=== PATIENT | male | born 1930 | race Asian ===

== ENCOUNTER 2017-12-13 16:20 | Inpatient (IN) | payer MEDICARE, MEDICAID ==
[~2017-12-13] VITALS: Ht 157.5 cm; Wt 38.6 kg
--- NOTE | 2017-12-13 16:30 | NUR ---
BB PRIVATE EMS FROM [facility] FOR PSYCH EVAL; PATIENT RECEIVED AWAKE AND ALERT. APPEARS NOT IN DISTRESS. VSS
[2017-12-13] MEDS ORDERED: ZOLP10TA2 GT ×2 (16:53→21:01)
[2017-12-13] MEDS ORDERED: ASCO500T9 GT (16:53)
[2017-12-13] MEDS ORDERED: SENN-18 GT (16:53)
[2017-12-13] MEDS ORDERED: TAMS-12 GT (16:53)
[2017-12-13] MEDS ORDERED: DIAZ2TAB3 GT (16:53)
[2017-12-13] MEDS ORDERED: NUT.237L67 GT (16:53)
[2017-12-13] MEDS ORDERED: ACET-868 GT (16:53)
[2017-12-13] MEDS ORDERED: PANC1CAP GT (16:53)
[2017-12-13] MEDS ORDERED: FEBU40TA GT (16:53)
[2017-12-13] MEDS ORDERED: DIPH1TAB GT (16:53)
[2017-12-13] MEDS ORDERED: ENOX30DI SQ (16:53)
[2017-12-13] MEDS ORDERED: PANT40SU2 GT (16:53)
[2017-12-13] MEDS ORDERED: NAPH1POW3 GT (16:53)
[2017-12-13] MEDS ORDERED: PRIM50TA GT (16:53)
[2017-12-13] MEDS ORDERED: METO5SOL GT (16:53)
[2017-12-13] MEDS ORDERED: EPOE40002 SQ (16:53)
[2017-12-13] MEDS ORDERED: ALLO100T GT (16:53)
[2017-12-13] MEDS ORDERED: FURO-145 GT (16:53)
[2017-12-13] MEDS ORDERED: FINA5TAB11 GT (16:53)
[2017-12-13] MEDS ORDERED: SODI650T GT (16:53)
[2017-12-13] MEDS ORDERED: MULT1TAB69 GT (16:53)
[2017-12-13 17:10] LABS: BASOPHILS % (AUTO) 0.2 % (0.0-2.0); EOSINOPHILS % (AUTO) 1.9 % (0.0-6.0); HEMATOCRIT 29 % (39-51); HEMOGLOBIN 9.6 g/dL (13.5-17.5); LYMPHOCYTES # (AUTO) 0.8 /CMM (0.8-4.8); LYMPHOCYTES % (AUTO) 14.1 % (20.0-44.0); MEAN CORPUSCULAR HGB CONC 34 g/dl (31.0-36.0); MEAN CORPUSCULAR VOLUME 93 fL (80-96); MONOCYTES # (AUTO) 0.6 /CMM (0.1-1.30); MONOCYTES % (AUTO) 10.4 % (2.0-12.0); NEUTROPHILS # (AUTO) 4.1 /CMM (1.8-8.9); NEUTROPHILS % (AUTO) 73.4 % (43.0-81.0); PLATELET COUNT (AUTO) 138 /CMM (150-450); RDW COEFFICIENT OF VARIATION 20.9 (11.5-15.0); RED BLOOD CELL COUNT(AUTO) 3.07 MIL/uL (4.5-6.0); WHITE BLOOD COUNT (AUTO) 5.6 K/uL (4.3-11.0)
--- NOTE | 2017-12-13 17:31 | NUR ---
URINE SAMPLE COLLECTED AND SENT TO LAB
[2017-12-13 17:33] LABS: ALANINE AMINOTRANSFERASE 24 U/L (12-78); ALBUMIN 3.2 g/dL (3.4-5.0); ALCOHOL, BLOOD < 3 mg/dL (0-0); ALKALINE PHOSPHATASE 80 U/L (46-116); ASPARTATE AMINOTRANSFERASE 25 U/L (15-37); BILIRUBIN,DIRECT 0.2 mg/dL (0.0-0.2); BILIRUBIN,TOTAL 0.5 mg/dL (0.2-1.0); CALCIUM, SERUM 11.5 mg/dL (8.5-10.1); CARBON DIOXIDE 32 mmol/L (21-32); CHLORIDE 90 mmol/L (98-107); GLUCOSE 108 mg/dL (74-106); POTASSIUM 4.1 mmol/L (3.5-5.1); SODIUM SERUM 133 mmol/L (136-145); TOTAL PROTEIN, SERUM 8.3 g/dL (6.4-8.2)
[2017-12-13 17:34] LABS: ACETAMINOPHEN < 2 ug/ml (10-30); SALICYLATE 1.9 mg/dL (2.8-20.0)
[2017-12-13 17:35] LABS: CREATININE 7.9 mg/dL (0.6-1.3); UREA NITROGEN, BLOOD 98 mg/dL (7-18)
[2017-12-13 17:52] LABS: APPEARANCE,URINE Cloudy (CLEAR); BILIRUBIN,URINE MODERATE (NEGATIVE); BLOOD, URINE Large Ery/uL (NEGATIVE); COLOR,URINE Red (YELLOW); KETONES,URINE Trace (NEGATIVE); LEUKOCYTE ESTERASE ,URINE Large (NEGATIVE); NITRITE, URINE Positive (NEGATIVE); PROTEIN,URINE >=300 mg/dl (NEGATIVE); UGLUCOSE Negative (NEGATIVE)
[2017-12-13 18:10] LABS: BACTERIA,URINE 4+ /HPF (None Seen); RBC,URINE TOO NUMEROUS TO COUN /HPF (0-2); SQUAMOUS EPITHELIAL CELL,UR Few /HPF (None Seen); WBC,URINE TOO NUMEROUS TO COUN /HPF (0-3)
--- NOTE | 2017-12-13 18:13 | NUR ---
CALLED [employer] AIRCRAFT INSPECTION RECORD CLERK WAS PAGED.
[2017-12-13] MEDS ORDERED: PIPERACILLIN /TAZOBACTAM 2.25 G in IV D5W 50 ML IV ONE (18:30)
[2017-12-13] MEDS ORDERED: IV NS 0.9% 500 ML BAG IV ONE (18:30)
[2017-12-13] MEDS ORDERED: SENNOSIDES 8.6 MG TABLET GT PRN (19:00)
[2017-12-13] MEDS ORDERED: DIPHENOXYLATE HCL/ATROP SULF 1 UDTAB TABLET GT PRN (19:00)
[2017-12-13] MEDS ORDERED: ONDANSETRON HCL/PF 4 MG/2 ML VIAL IVP PRN (19:00)
[2017-12-13] MEDS ORDERED: HYDROCODONE/APAP 5/325MG 1 EACH TABLET PO PRN (19:00)
[2017-12-13] MEDS ORDERED: MAG HYDROX/AL HYDROX/SIMETH 30 ML UDC PO PRN (19:00)
[2017-12-13] MEDS ORDERED: MAGNESIUM HYDROXIDE 30 ML UDC PO PRN (19:00)
[2017-12-13] MEDS ORDERED: NEPRO VAN 237 ML CAN GT SCH (19:00)
[2017-12-13] MEDS ORDERED: ACETAMINOPHEN 325 MG TABLET PO PRN (19:00)
[2017-12-13] MEDS ORDERED: ACETAMINOPHEN 325 MG TABLET MC PRN (19:00)
[2017-12-13] MEDS ORDERED: Z GUARD REMEDY 2 OZ OINT TP PRN (19:00)
--- NOTE | 2017-12-13 20:00 | NUR ---
CONTACT LENS BLOCKER AND CUTTER NOTES PATIENT BROUGHT INTO THE UNIT VIA GURNEY, ACCOMPANIED BY ER STAFF. PT IS ALERT TO SELF, NO SOB NOTED, TOLERATING ROOM AIR, BREATHING EVEN AND UNLABORED. PT WITH NO C/O PAIN AND IS IN NO ACUTE DISTRESS AT THIS TIME. VSS, PATIENT'S SON, PARKER ROSADO, AT BEDSIDE TEL # [phone]. ORIENTED PT AND SON TO UNIT, ROOM, ROOM MATE, CALL LIGHT, USE OF CALL LIGHT, ADMISSION PROCESS AND SON VERBALIZED UNDERSTANDING. NOTED PT TO HAVE XIONG CATHETER,OUTPUT WITH HEMATURIA AND RECEIVING BLADDER IRRIGATION. PATIENT INITIALLY FOR PSYCH EVAL, NO SUICIDAL IDEATION AT THIS TIME, SITTER AT BEDSIDE. ALL PATIENT'S NEEDS ATTENDED TO, PLACED BED IN LOW POSITION, NO SHARP OBJECTS WITHIN REACH. WILL CONTINUE TO MONITOR.
--- NOTE | 2017-12-13 20:05 | NUR ---
CLINICAL DENTAL TECHNICIAN NOTES PATIENT UNDER TELE MONITORING WITH ST @ 109 BPM. WILL CONTINUE TO MONITOR PT.
--- NOTE | 2017-12-13 20:13 | NUR ---
PT TRANSPORTED TO [facility]
[2017-12-13] MEDS: IV NS 0.9% 1,000 ML IV PRN (22:10)
[2017-12-13] MEDS: NEPRO 1,000 ML BOTTLE GT PRN (22:10)
[2017-12-14] VITALS: BP 145/82
--- NOTE | 2017-12-14 00:58 | NUR ---
RN NOTES MEDICATION SODIUM BICARBONATE 650 MG NOT AVAILABLE AT THIS TIME. LAB ASSISTANT LUIS MADE AWARE. PER LAB ASSISTANT, IT IS OK TO MISS DOSES AND FOLLOW UP WITH PHARMACY IN THE AM.
[2017-12-14] MEDS ORDERED: PIPERACILLIN /TAZOBACTAM 2.25 G VIAL IV ONE (03:35)
[2017-12-14 04:00] VITALS: BP 102/82
[2017-12-14] MEDS: PIPERACILLIN /TAZOBACTAM 2.25 G in IV D5W 50 ML IV SCH ×3 (04:10→21:26)
[2017-12-14] MEDS: DIAZEPAM 2 MG TABLET GT PRN ×2 (04:33→17:49)
[2017-12-14] MEDS: PANTOPRAZOLE 40 MG/PACK PACK GT SCH (05:38)
--- NOTE | 2017-12-14 07:00 | NUR ---
RN CLOSING TELE NOTES PATIENT IN BED, ASLEEP BUT EASILY AROUSABLE. NO SOB NOTED, BREATHING EVEN AND UNLABORED, IN NO ACUTE DISTRESS. PT WITH XIONG CATHETER WITH OUTPUT OF YELLOW, PINK TINGED URINE, DRAINING WELL. DENIES PAIN AT THIS TIME. TOLERATING GTF ORDERED. IVF INFUSING WELL ORDERED VIA LAC G#20 IVP. UNDER TELE MONITORING WITH SINUS RHYTHM, TO TACHY @ 80s-120s. ALL PATIENT'S NEEDS ATTENDED TO THROUGHOUT THE SHIFT. PLACED BED IN LOW POSITION AND LOCKED IN PLACE. WILL ENDORSE TO AM SHIFT NURSE FOR CONTINUITY OF CARE.
--- NOTE | 2017-12-14 07:30 | NUR ---
BLACK AND WHITE PRINTER OPERATOR OPENING NOTES RECEIVED PATIENT IN BED AWAKE, ALERT AND ORIENTED X1. FRISIAN SPEAKING ONLY. IN STABLE CONDITION. BREATHING EVEN AND UNLABORED. NO SIGNS OF PAIN OF PAIN OR DISCOMFORT. NO FACIAL GRIMACING. XIONG CATHETER IN PLACE AND DRAINING YELLOW COLORED AND PINK TINGED URINE. ON GTF AT 35ML/HOUR, INFUSING AND TOLERATING WELL. IV LINE ON LAC #20 PATENT AND INTACT, INFUSING NS @75ML/HR. ALL OTHER NEEDS ATTENDED TO. CALL LIGHT WITHIN REACH. BED ON LOWEST LOCKED POSITION.
[2017-12-14 07:32] LABS: BASOPHILS % (AUTO) 0.1 % (0.0-2.0); EOSINOPHILS % (AUTO) 0.3 % (0.0-6.0); HEMATOCRIT 26 % (39-51); HEMOGLOBIN 8.6 g/dL (13.5-17.5); LYMPHOCYTES # (AUTO) 0.8 /CMM (0.8-4.8); MEAN CORPUSCULAR HGB CONC 33 g/dl (31.0-36.0); MEAN CORPUSCULAR VOLUME 96 fL (80-96); MONOCYTES # (AUTO) 0.9 /CMM (0.1-1.30); MONOCYTES % (AUTO) 9.8 % (2.0-12.0); NEUTROPHILS # (AUTO) 7.1 /CMM (1.8-8.9); NEUTROPHILS % (AUTO) 80.8 % (43.0-81.0); PLATELET COUNT (AUTO) 119 /CMM (150-450); RDW COEFFICIENT OF VARIATION 21.5 (11.5-15.0); RED BLOOD CELL COUNT(AUTO) 2.68 MIL/uL (4.5-6.0); WHITE BLOOD COUNT (AUTO) 8.8 K/uL (4.3-11.0)
[2017-12-14 07:58] LABS: CALCIUM, SERUM 10.3 mg/dL (8.5-10.1); CARBON DIOXIDE 31 mmol/L (21-32); CHLORIDE 96 mmol/L (98-107); GLUCOSE 119 mg/dL (74-106); MAGNESIUM 3.2 mg/dL (1.8-2.4); POTASSIUM 4.3 mmol/L (3.5-5.1); SODIUM SERUM 139 mmol/L (136-145)
[2017-12-14 08:00] VITALS: BP 91/51
[2017-12-14 08:07] LABS: CREATININE 7.6 mg/dL (0.6-1.3); UREA NITROGEN, BLOOD 99 mg/dL (7-18)
[2017-12-14 08:08] LABS: PHOSPHORUS 8.7 mg/dL (2.5-4.9)
[2017-12-14] MEDS: PRIMIDONE 50 MG TABLET GT SCH (08:34)
[2017-12-14] MEDS: FINASTERIDE (5 MG) 5 MG TABLET GT SCH (08:34)
[2017-12-14] MEDS: TAMSULOSIN 0.4 MG CAP.SR.24H GT SCH ×2 (08:34→17:49)
[2017-12-14] MEDS: ASCORBIC ACID 500 MG TABLET GT SCH (08:34)
[2017-12-14] MEDS: ALLOPURINOL 100 MG TABLET GT SCH (08:34)
[2017-12-14] MEDS ORDERED: MAGNESIUM HYDROXIDE 30 ML UDC GT PRN (08:43)
[2017-12-14] MEDS ORDERED: MAG HYDROX/AL HYDROX/SIMETH 30 ML UDC GT PRN (08:43)
[2017-12-14] MEDS ORDERED: HYDROCODONE/APAP 5/325MG 1 EACH TABLET GT PRN (08:44)
[2017-12-14] MEDS ORDERED: ACETAMINOPHEN 650 MG/20.3 ML UDC GT PRN (08:45)
[2017-12-14] MEDS: MULTIVITAMINS,THERAGRAN 1 UDTAB TABLET GT SCH (08:50)
--- NOTE | 2017-12-14 08:50 | NUR ---
CONTINUUM OF CARE MANAGER NOTES GAVE THERAGRAN AT 9AM PRIOR TO MD DISCONTINUING IT AND PUTTING IT IN A NEW ORDER.
[2017-12-14] MEDS ORDERED: [UNRECOGNIZED DRUG - MIXTURE] GT SCH (09:00)
[2017-12-14] MEDS ORDERED: K PH MBDB GT SCH (09:00)
[2017-12-14] MEDS ORDERED: MULTIVITAMINS,THERAGRAN 1 UDTAB TABLET PO SCH (09:00)
[2017-12-14] MEDS ORDERED: NAPH MB DB GT SCH (09:00)
[2017-12-14] MEDS: SODIUM BICARBONATE 650 MG TABLET GT SCH ×4 (11:18→23:19)
[2017-12-14 16:00] VITALS: BP 108/63
--- NOTE | 2017-12-14 18:50 | NUR ---
RN MS CLOSING NOTES PATIENT IN BED AWAKE, ALERT AND ORIENTED X1. CROATIAN SPEAKING ONLY. IN STABLE CONDITION. BREATHING EVEN AND UNLABORED. CURRENTLY NO SIGNS OF PAIN OF PAIN OR DISCOMFORT. NO FACIAL GRIMACING. XIONG CATHETER IN PLACE AND DRAINING YELLOW COLORED AND PINK TINGED URINE. ON GTF AT 35ML/HOUR, INFUSING AND TOLERATING WELL. NEW IV LINE ON RIGHT FOREARM #22 PATENT AND INTACT, INFUSING NS @75ML/HR. SEEN BY DIGITAL ARCHIVIST, DR. CARLIN. PER DR. CARLIN, FAMILY REFUSES AGGRESSIVE TREATMENT. WITH 1:1 SITTER. ALL OTHER NEEDS ATTENDED TO. CALL LIGHT WITHIN REACH. BED ON LOWEST LOCKED POSITION. WILL ENDORSE TO ONCOMING RN FOR CONTINUITY OF CARE.
--- NOTE | 2017-12-14 19:15 | NUR ---
RN OPENING NOTES RECEIVED PT IN BED, AWAKE, ALERT TO SELF. NOTED XIONG CATH DRAINING WITH YELLOW URINE WITH SOME RED MUCUS THREADS. NO FACIAL GRIMACING NOTED. PT IN NO ACUTE DISTRESS, NO SOB, BREATHING EVEN AND UNLABORED, RECEIVING GTF ORDERED AND PT IS TOLERATING WELL. PT'S IVF INFUSING WELL ON RFA IVP LINE. ALL PATIENT'S NEEDS ATTENDED TO AT THIS TIME. PLACED BED IN LOW POSITION AND LOCKED IN PLACE. WILL CONTINUE TO MONITOR PT.
[2017-12-14] MEDS ORDERED: EPOETIN ALFA (4000 UNIT) 4,000 UNIT/ML VIAL SQ SCH (21:00)
[2017-12-14] MEDS: IV NS 0.9% 1,000 ML IV PRN (21:26)
[2017-12-14] MEDS ORDERED: EPOETIN ALFA (10,000 UNIT) 10,000 UNIT/ML VIAL ONE (22:30)
[2017-12-15] MEDS: NEPRO 1,000 ML BOTTLE GT PRN (02:14)
[2017-12-15] MEDS: PIPERACILLIN /TAZOBACTAM 2.25 G in IV D5W 50 ML IV SCH (04:26)
--- NOTE | 2017-12-15 05:35 | NUR ---
RN NOTES PT NOTED TO BE VERBALIZING THAT HE WANTS TO AND WAS SEEN TO BE TRYING TO HIT HIS HEAD ON THE SIDE RAILS. REDIRECTED AND RE-ORIENTED PT. NOTIFIED FATUMA SIMTH AND RECEIVED ORDER FOR PSYCH CONSULT WITH DR. LECHUGA. CONTACTED GPS, SPOKE WITH CHARGE NURSE PAT AND FAXED PT'S FACE SHEET. ALL ORDERS NOTED AND CARRIED OUT. SIDE RAILS PADDED FOR PT SAFETY, SITTER AT BEDSIDE. WILL CONTINUE TO MONITOR PT.
[2017-12-15] MEDS: SODIUM BICARBONATE 650 MG TABLET GT SCH ×4 (06:06→23:06)
[2017-12-15] MEDS: PANTOPRAZOLE 40 MG/PACK PACK GT SCH (06:06)
--- NOTE | 2017-12-15 06:22 | NUR ---
RN CLOSING NOTES PATIENT IN BED, ASLEEP BUT EASILY AROUSABLE. RECEIVING GTF AND IVF ORDERED AND PT IS TOLERATING WELL. PT WITH NO SOB, BREATHING EVEN AND UNLABORED, IN NO ACUTE DISTRESS AT THIS TIME, NO FACIAL GRIMACING NOTED. PT WITH XIONG CATHETER DRAINING WITH BLOOD TINGED URINE. SAFETY PRECAUTIONS IN PLACE, WITH PADDED SIDERAILS, BED IN LOW POSITION AND LOCKED IN PLACE. CALL LIGHT IN EASY REACH AND SITTER AT BEDSIDE. Addendum: 12/15/17 at 0629 by KELVIN DUMONT RN WILL ENDORSE TO AM SHIFT NURSE FOR CONTINUITY OF CARE.
--- NOTE | 2017-12-15 07:22 | NUR ---
MS RN OPENING NOTES RECEIVED PATIENT AWAKE IN BED IN NO ACUTE SIGNS OF DISTRESS. SITTER AT BEDSIDE. A/O X1. ALBANIAN SPEAKING. CALMED AND QUIET, DENIES PAIN OR DISCOMFORTS AT THIS TIME. ON ROOM AIR, BREATHING EVEN AND UNLABORED. G-TUBE IN PLACE WITH FEEDING OF NEPHRO @ 35ML/HR IN PROGRESS, TOLERATING WELL. ASPIRATION PRECAUTIONS MAINTAINED. IV ACCESS ON RFA G#20 INTACT AND PATENT WITH IVF OF NS @ 75ML/HR INFUSING, NO SIGNS OF INFILTRATION NOTED. XIONG CATHETER IN PLACE WITH DARK YELLOW BLOOD TINGED URINE NOTED TO URINARY BAG. ALL SAFETY MEASURE IN PLACE. HOB ELEVATED.BED IN LOW/LOCKED POSITION. CALL LIGHT WITHIN EASY REACH. WILL CONTINUE TO MONITOR.
[2017-12-15 08:00] VITALS: BP 117/62
[2017-12-15] MEDS: ASCORBIC ACID 500 MG TABLET GT SCH (08:52)
[2017-12-15] MEDS: MULTIVITAMINS,THERAGRAN 1 UDTAB TABLET GT SCH (08:52)
[2017-12-15] MEDS: PRIMIDONE 50 MG TABLET GT SCH (08:52)
[2017-12-15] MEDS: ALLOPURINOL 100 MG TABLET GT SCH (08:52)
[2017-12-15] MEDS: FINASTERIDE (5 MG) 5 MG TABLET GT SCH (08:52)
[2017-12-15] MEDS: TAMSULOSIN 0.4 MG CAP.SR.24H GT SCH ×2 (08:52→17:22)
[2017-12-15 09:31] LABS: BASOPHILS % (AUTO) 0.2 % (0.0-2.0); EOSINOPHILS % (AUTO) 0.1 % (0.0-6.0); HEMATOCRIT 24 % (39-51); HEMOGLOBIN 7.9 g/dL (13.5-17.5); LYMPHOCYTES # (AUTO) 0.7 /CMM (0.8-4.8); MEAN CORPUSCULAR HGB CONC 33 g/dl (31.0-36.0); MEAN CORPUSCULAR VOLUME 97 fL (80-96); MONOCYTES # (AUTO) 0.5 /CMM (0.1-1.30); MONOCYTES % (AUTO) 8.5 % (2.0-12.0); NEUTROPHILS # (AUTO) 4.9 /CMM (1.8-8.9); NEUTROPHILS % (AUTO) 79.2 % (43.0-81.0); PLATELET COUNT (AUTO) 102 /CMM (150-450); RDW COEFFICIENT OF VARIATION 22.3 (11.5-15.0); RED BLOOD CELL COUNT(AUTO) 2.49 MIL/uL (4.5-6.0); WHITE BLOOD COUNT (AUTO) 6.2 K/uL (4.3-11.0)
[2017-12-15 10:17] LABS: CALCIUM, SERUM 9.9 mg/dL (8.5-10.1); CARBON DIOXIDE 27 mmol/L (21-32); CHLORIDE 97 mmol/L (98-107); GLUCOSE 135 mg/dL (74-106); POTASSIUM 3.9 mmol/L (3.5-5.1); SODIUM SERUM 139 mmol/L (136-145)
[2017-12-15 10:22] LABS: CREATININE 7.5 mg/dL (0.6-1.3); UREA NITROGEN, BLOOD 93 mg/dL (7-18)
[2017-12-15] MEDS ORDERED: LEVOFLOXACIN (250MG) 250 MG TABLET GT SCH (11:00)
--- NOTE | 2017-12-15 15:42 | NUR ---
RN NOTES PT EVALUATED BY DOCUMENTATION IMPROVEMENT SPECIALIST WITH RECOMMENDATION TO INCREASE NEPHRO FEEING FROM 35ML/HR X20HRS DAILY TO 30ML/HR X24HRS CONTINUOUS. DR ADAMES MADE AWARE AND IN AGREEMENT. WILL CARRY OUT ORDER.
[2017-12-15 16:00] VITALS: BP 119/66
[2017-12-15] MEDS ORDERED: NEPRO 1,000 ML BOTTLE GT PRN (16:00)
[2017-12-15] MEDS: IV NS 0.9% 1,000 ML IV PRN (16:50)
--- NOTE | 2017-12-15 19:00 | NUR ---
MS RN OPENING NOTE A/O X1, CONFUSED. NO FACIAL GRIMACING NOTED FOR PAIN. NO SOB OR DISTRESS NOTED, CALL LIGHT WITHIN REACH. SAFETY MEASURES IMPLEMENTED. WILL CONTINUE TO MONITOR THROUGHOUT SHIFT.
--- NOTE | 2017-12-15 19:32 | NUR ---
MS RN CLOSING NOTES PATIENT AWAKE IN BED AND RESTING AT MODERATE HIGH BACKREST POSITION. 1:1 SITTER AT BEDSIDE. FOR CLOSE MONITORING. A/O X1. LITHUANIAN SPEAKING. CONFUSED AND AGITATED ON AND OFF DURING THE DAY. REORIENTED AND MORAL SUPPORT GIVEN. ON ROOM AIR, BREATHING EVEN AND UNLABORED. G-TUBE IN PLACE WITH FEEDING OF NEPHRO @ 30ML/HR IN PROGRESS, TOLERATING WELL. ASPIRATION PRECAUTIONS MAINTAINED. IV ACCESS ON RFA G#20 INTACT AND PATENT WITH IVF OF NS @ 75ML/HR INFUSING, NO SIGNS OF INFILTRATION NOTED. XIONG CATHETER IN PLACE WITH DARK YELLOW BLOOD TINGED URINE NOTED TO URINARY BAG. ALL SAFETY MEASURE IN PLACE. HOB ELEVATED.BED IN LOW/LOCKED POSITION. CALL LIGHT WITHIN EASY REACH. ALL NEEDS AND CARE PROVIDED WELL. ENDOSRESD TO SYSTEM TECHNOLOGIST NURSE FOR LADARIUS.
[2017-12-15 20:00] VITALS: BP 116/50
[2017-12-15] MEDS: DIAZEPAM 2 MG TABLET GT PRN (23:06)
--- NOTE | 2017-12-16 00:06 | NUR ---
MS RN NOTES PT REMAINS CALM NO S/S OF DISTRESS
[2017-12-16] MEDS: SODIUM BICARBONATE 650 MG TABLET GT SCH ×2 (05:33→12:06)
[2017-12-16] MEDS: PANTOPRAZOLE 40 MG/PACK PACK GT SCH (05:33)
[2017-12-16] MEDS: IV NS 0.9% 1,000 ML IV PRN (05:45)
--- NOTE | 2017-12-16 06:32 | NUR ---
MS RN CLOSING NOTES PT COMFORTABLY ASLEEP AND EASILY AWAKEN, A/O X1, GT FEEDING INFUSING ORDERED AND TOLERATED WELL. IN STABLE CONDITION. F/C DRAINING WELL VIA GRAVITY YELLOW WITH NO SEDIMENTS HEMATURIA, CLOUDINESS GOOD F/C CARE PROVIDED. RESPIRATION EVEN AND UNLABORED. KEPT CLEAN AND DRY AND COMFORTABLE, ALL NURSING CARE RENDERED. NEEDS ATTENDED AND ANTICIPATED, GOOD SKIN CARE PROVIDED. 1:1 SITTER, FREQUENT VISUAL CHECK DONE FOR SAFETY EVERY 2 HOURS. ON LOW BED AT ALL TIMES TO ENSURE SAFETY. SAFE HAZARD FREE ENVIRONMENT PROVIDED. ASSIST REPOSITION EVERY 2 HOURS. CALL LIGHT WITHIN EASY TO REACH. WILL ENDORSE NEXT SHIFT CONTINUITY OF CARE.
[2017-12-16 07:03] LABS: BASOPHILS % (AUTO) 0.4 % (0.0-2.0); HEMATOCRIT 22 % (39-51); HEMOGLOBIN 7.4 g/dL (13.5-17.5); LYMPHOCYTES # (AUTO) 0.8 /CMM (0.8-4.8); LYMPHOCYTES % (AUTO) 13.5 % (20.0-44.0); MEAN CORPUSCULAR HGB CONC 33 g/dl (31.0-36.0); MEAN CORPUSCULAR VOLUME 97 fL (80-96); MONOCYTES # (AUTO) 0.6 /CMM (0.1-1.30); MONOCYTES % (AUTO) 10.3 % (2.0-12.0); NEUTROPHILS # (AUTO) 4.4 /CMM (1.8-8.9); NEUTROPHILS % (AUTO) 75.8 % (43.0-81.0); PLATELET COUNT (AUTO) 108 /CMM (150-450); RED BLOOD CELL COUNT(AUTO) 2.31 MIL/uL (4.5-6.0); WHITE BLOOD COUNT (AUTO) 5.8 K/uL (4.3-11.0)
[2017-12-16 07:21] LABS: CALCIUM, SERUM 9.8 mg/dL (8.5-10.1); CARBON DIOXIDE 28 mmol/L (21-32); CHLORIDE 102 mmol/L (98-107); CREATININE 7.3 mg/dL (0.6-1.3); GLUCOSE 118 mg/dL (74-106); POTASSIUM 3.4 mmol/L (3.5-5.1); SODIUM SERUM 143 mmol/L (136-145)
[2017-12-16 07:22] LABS: UREA NITROGEN, BLOOD 87 mg/dL (7-18)
--- NOTE | 2017-12-16 07:25 | NUR ---
MS RN OPENING NOTES PATIENT RECEIVED AWAKE IN BED WITH 1:1 SITTER AT BEDSIDE. A/O X1. LUXEMBOURGISH SPEAKING. NO APPARENT DISTRESS OR SIGNS OF PAIN NOTED AT THIS TIME. ON ROOM AIR, BREATHING EVEN AND UNLABORED. G-TUBE IN PLACE WITH FEEDING OF NEPHRO @ 30ML/HR IN PROGRESS, TOLERATING WELL. ASPIRATION PRECAUTIONS MAINTAINED. IV ACCESS ON RFA G#20 INTACT AND PATENT WITH IVF OF NS @ 75ML/HR INFUSING, NO SIGNS OF INFILTRATION NOTED. XIONG CATHETER IN PLACE WITH CLEAR YELLOW URINE OUTPUT NOTED TO URINARY BAG. ALL SAFETY MEASURES IN PLACE. HOB ELEVATED. BED IN LOW/LOCKED POSITION. SIDE-RAILS UP APPROPRIATE. CALL LIGHT WITHIN. WILL CONTINUE TO MONITOR.
[2017-12-16 08:00] VITALS: BP 109/53
[2017-12-16] MEDS: MULTIVITAMINS,THERAGRAN 1 UDTAB TABLET GT SCH (08:18)
[2017-12-16] MEDS: ASCORBIC ACID 500 MG TABLET GT SCH (08:18)
[2017-12-16] MEDS: TAMSULOSIN 0.4 MG CAP.SR.24H GT SCH (08:18)
[2017-12-16] MEDS: ALLOPURINOL 100 MG TABLET GT SCH (08:18)
[2017-12-16] MEDS: PRIMIDONE 50 MG TABLET GT SCH (08:18)
[2017-12-16] MEDS: FINASTERIDE (5 MG) 5 MG TABLET GT SCH (08:18)
[2017-12-16] MEDS ORDERED: LEVO250T2 GT (10:46)
--- NOTE | 2017-12-16 12:59 | NUR ---
RN NOTES PATIENT FOR DISCHARGE THIS AFTERNOON. PICK-UP TIME IS 1500. CALLED AND REPORT GIVEN TO MARIS, DATA MODELING ARCHITECT OF [facility]. CALLED AND INFORMED PT'S SON PARKER ROSADO OF PT'S TRANSFER THIS AFTERNOON AND SAID THAT HE WILL GO AND VISIT PT AT [facility] THIS AFTERNOON.
--- NOTE | 2017-12-16 15:25 | NUR ---
RN DISCHARGED NOTES PATIENT DIS[facility]GED TO [facility] IN STABLE CONDITION. ALERT AND RESPONSIVE TO TACTILE AND VERBAL STIMULI. COOPERATIVE AND MOSTLY CALMED TODAY. ALL NEEDS AND CARE PROVIDED WELL. V/S TAKEN AND RECORDED. PHOTOS OF SKIN TAKEN AND FILED ON CHART. ALL BELONGINGS ACCOUNTED FOR AND SIGNED FORM. PT UN-ABLE TO COMPREHEND WHEN HEALTH TEACHINGS AND DISCHARGE INSTRUCTIONS WERE GIVEN, INTEGRITY CONSULTANT MARIS OF [facility] REQUESTED TO KEEP XIONG. PT NOTED WITH CLEAR LIGHT YELLOW URINE OUTPUT WITHOUT HEMATURIA NOTED TODAY. PT LEFT UNIT @ 1505 VIA GURNEY IN NO ACUTE SIGNS OF DISTRESS ACCOMPANIED BY 2 EMT'S. MD AND CHARGE NURSE AWARE OF DISCHARGE.
== END 2017-12-16 15:14 | DRG 682 ==
LOC: ER 16:27 → TELE 19:45 → MED 12-14 09:18
PROVIDERS: ADMIT Internal Medicine; ATTEND Internal Medicine
DX: N17.9 Acute kidney failure, unspecified (principal); G92 Toxic encephalopathy; N39.0 Urinary tract infection, site not specified; I13.2 Hypertensive heart and chronic kidney disease with heart failure and with stage 5 chronic kidney disease, or end stage renal disease; R45.851 Suicidal ideations; E87.4 Mixed disorder of acid-base balance; Z66 Do not resuscitate; N18.5 Chronic kidney disease, stage 5; I50.9 Heart failure, unspecified; F03.90 Unspecified dementia, unspecified severity, without behavioral disturbance, psychotic disturbance, mood disturbance, and anxiety; N40.0 Benign prostatic hyperplasia without lower urinary tract symptoms; F41.9 Anxiety disorder, unspecified; M10.9 Gout, unspecified; D63.8 Anemia in other chronic diseases classified elsewhere; F32.9 Major depressive disorder, single episode, unspecified; R13.10 Dysphagia, unspecified; Z93.1 Gastrostomy status
CPT/HCPCS: 36415; 76770-TC; 80048-TC; 80076-TC; 80305; 81000-TC; 83735-TC; 84100-TC; 84443-TC; 85025-TC; 87081-TC; 87086-TC; 87186-TC; A4217; A4606; G0480; J0885; J2543; J7030; J7040; J7060; Z7610